=== PATIENT | born 1995 | race Caucasian/White ===

== ENCOUNTER 2021-11-19 08:15 | Outpatient (RCR) | payer OTHER, SELFPAY ==
--- NOTE | 2021-08-13 11:40 | PT.OIE ---
Current Diagnoses Unspecified dyspareunia (08/13/21) Visit Care Team Role Provider Type Shereen Dozier MD Attending Provider Non-Staff Family Provider Primary Care Provider Referring Provider Specialty: Medical Address: [address] [place] [address], [facility] Email: Physical Therapy Initial Evaluation PT-OP-A Visit Information Start: 07/13/21 08:07 Freq: Status: Active Protocol: Document 08/13/21 09:00 AMB (Rec: 08/13/21 10:12 AMB [email or web address]) Out-Patient Physical Therapy Visit Information Visit Information Visit Type Initial Evaluation Visit Start Time 09:00 Visit Stop Time 09:45 Total Visit Minutes 45 Visit Number 1 PT-OP-B Current Condition Start: 07/13/21 08:07 Freq: Status: Active Protocol: Document 08/13/21 09:01 AMB (Rec: 08/13/21 09:29 AMB [id number]) Current Condition History of Current Condition Onset Date 1 year ago Current Complaints Dyspareunia History of Current Condition Latasha was one year ago and prior to that did not engage in intercourse. She has pain since initiating sex, but denies prior history of pain with inserting tampons, painful with both deeper penetration and more superficial intercourse. Her is currently deployed, but is returning soon. She states the pain feels like something will tear, did bleed with first sexual experience , but not since then. Treatment Goals Patient/Caregiver Goals [place] without pain PT-OP-C Subjective Start: 07/13/21 08:07 Freq: Status: Active Protocol: Document 08/13/21 09:00 AMB (Rec: 08/13/21 10:12 AMB [email or web address]) Patient Questionnaires Pelvic Pain and Urgency/Frequency Patient Symptom Scale Pelvic Pain Score 6 PT-OP-I Pelvic Floor Start: 07/13/21 08:07 Freq: Status: Active Protocol: Document 08/13/21 09:00 AMB (Rec: 08/13/21 10:12 AMB [email or web address]) Pelvic Floor Assessment Urine Pelvic Floor Surgery No Pelvic Clock Pelvic Clock 3-6 Guarding,Hypertonic,Tenderness ,Tightness Pelvic Clock 6-9 Guarding,Hypertonic,Tenderness ,Tightness Pelvic Clock Other Tenderness worst at perineum/ introitus, mild tenderness and moderate tension at levator ani bilaterally, but generally much more tenderness/ tightness superficially Perineal Descent Resting Absent Bearing Absent Contraction Ability Voluntary Contraction Moderate Voluntary Relaxation Weak Manual Muscle Testing Left 3 Manual Muscle Testing Right 3 Manual Muscle Testing Anterior 3 Manual Muscle Testing Posterior 3 Muscle Endurance (Seconds) 5 Comments Pelvic Floor Comments Pt required cueing for correct pelvic floor contraction, tended to bear down rather than lift. Was able to correct with cueing. PT-OP-T Assessment and Plan Start: 07/13/21 08:07 Freq: Status: Active Protocol: Document 08/13/21 09:00 AMB (Rec: 08/13/21 10:12 AMB [email or web address]) Physical Therapy Assessment Rehab Potential Rehabilitation Potential Good Evaluation Complexity Number of Personal Factors/Comorbidities 0 Number of Body Systems Impaired 1-2 Clinical Presentation at Evaluation Stable Impairments Impairments Functional Activities,Pain Goals Two Impairment [place] Short Term Goal (STG) Latasha will tolerate insertion of a small sized dilator without an increase in pelvic floor pain. STG Duration 4 weeks Residential Goal (LTG) Latasha will tolerate intercourse of her choice with pain of 3/10 or less. LTG Duration 8 weeks One Impairment Pelvic floor Short Term Goal (STG) Latasha will tolerate insertion of biofeedback sensor so that she can learn about pelvic floor down regulation via biofeedback. STG Duration 4 weeks Farmer General Goal (LTG) Latasha will be independent with a strengthening and stretching pelvic floor home exercise program. LTG Duration 8 weeks Assessment Summary Assessment Latasha attends PT with history of painful intercourse, denies pain with inserting tampons. During her exam, she had significant tenderness and tightness at the perineal body . She did have tension throughout her pelvic floor muscles upon exam, but the superficial level was the most painful. We began instruction in pelvic floor relaxation, breathing techniques, and she was given and XS sized dilator for home use. She will benefit from physical therapy to continue education and manual releases, further instruction in pelvic floor stretching and lengthening techniques so that she can have reduced pain with intercourse. Physical Therapy Plan Frequency and Duration Frequency of Treatment 1x/Week Duration of Treatment 8 weeks Plan of Care Start Date 08/13/21 Plan of Care End Date 10/08/21 Therapeutic Interventions Therapeutic Interventions Home Exercise Program,Manual Therapy,Neuromuscular Re- education,Self-Care/Home Management,Soft Tissue Mobilization,Therapeutic Activities,Therapeutic Exercises Next Visit Focus/Plan Next Note Type Treatment Note Next Visit Plan Hip openers, review kegel, internal releases, review dilator, can consider sEMG for downtraining if sensor will be tolerated
--- NOTE | 2021-08-13 11:41 | PT.OPPOC ---
Physical, Occupational & Speech Therapy At [facility] Current Diagnoses Unspecified dyspareunia (08/13/21) Visit Care Team Role Provider Type Shereen Dozier MD Attending Provider Non-Staff Family Provider Primary Care Provider Referring Provider Specialty: Medical Address: [address] [place] [address], [id number] Email: Plan Of Care PT-OP-T Assessment and Plan Start: 07/13/21 08:07 Freq: Status: Active Protocol: Document 08/13/21 09:00 AMB (Rec: 08/13/21 10:12 AMB [email or web address]) Physical Therapy Assessment Rehab Potential Rehabilitation Potential Good Evaluation Complexity Number of Personal Factors/Comorbidities 0 Number of Body Systems Impaired 1-2 Clinical Presentation at Evaluation Stable Impairments Impairments Functional Activities,Pain Goals Two Impairment [place] Short Term Goal (STG) Latasha will tolerate insertion of a small sized dilator without an increase in pelvic floor pain. STG Duration 4 weeks Skilled Nursing Goal (LTG) Latasha will tolerate intercourse of her choice with pain of 3/10 or less. LTG Duration 8 weeks One Impairment Pelvic floor Short Term Goal (STG) Latasha will tolerate insertion of biofeedback sensor so that she can learn about pelvic floor down regulation via biofeedback. STG Duration 4 weeks Welding Machine Setter Goal (LTG) Latasha will be independent with a strengthening and stretching pelvic floor home exercise program. LTG Duration 8 weeks Assessment Summary Assessment Latasha attends PT with history of painful intercourse, denies pain with inserting tampons. During her exam, she had significant tenderness and tightness at the perineal body . She did have tension throughout her pelvic floor muscles upon exam, but the superificial level was the most painful. We began instruction in pelvic floor relaxation, breathing techniques, and she was given and XS sized dilator for home use. She will benefit from physical therapy to continue education and manual releases, further instruction in pelvic floor stretching and lengthening techniques so that she can have reduced pain with intercourse. Physical Therapy Plan Frequency and Duration Frequency of Treatment 1x/Week Duration of Treatment 8 weeks Plan of Care Start Date 08/13/21 Plan of Care End Date 10/08/21 Therapeutic Interventions Therapeutic Interventions Home Exercise Program,Manual Therapy,Neuromuscular Re- education,Self-Care/Home Management,Soft Tissue Mobilization,Therapeutic Activities,Therapeutic Exercises Next Visit Focus/Plan Next Note Type Treatment Note Next Visit Plan Hip openers, review kegel, internal releases, review dilator, can consider sEMG for downtraining if sensor will be tolerated Plan of Care Dates Plan of Care Start Date 08/13/21 Plan of Care End Date 10/08/21 Electronically Signed by: Kelsey Castro, PT 08/14/21 1144 Please Sign and Return: I have reviewed this Plan of Care and certify that the skilled therapy services above are required to meet the patient?s needs. Physician Signature Date Printed Name and Credentials Clinical Instructor Signature Printed Name and Credentials
--- NOTE | 2021-08-27 13:12 | PT.OTN ---
Current Diagnoses Unspecified dyspareunia (08/27/21) Physical Therapy Treatment Note PT-OP-A Visit Information Start: 07/13/21 08:07 Freq: Status: Active Protocol: Document 08/27/21 08:28 AMB (Rec: 08/27/21 09:04 AMB [id number]) Out-Patient Physical Therapy Visit Information Visit Information Visit Type Treatment Note Visit Start Time 08:15 Visit Stop Time 09:00 Total Visit Minutes 45 Visit Number 2 PT-OP-B Current Condition Start: 07/13/21 08:07 Freq: Status: Active Protocol: Document 08/13/21 09:01 AMB (Rec: 08/13/21 09:29 AMB [id number]) Current Condition History of Current Condition Onset Date 1 year ago Current Complaints Dyspareunia History of Current Condition Latasha was one year ago and prior to that did not engage in intercourse. She has pain since initiating sex, but denies prior history of pain with inserting tampons, painful with both deeper penetration and more superficial intercourse. Her is currently deployed, but is returning soon. She states the pain feels like something will tear, did bleed with first sexual experience , but not since then. Treatment Goals Patient/Caregiver Goals [place] without pain PT-OP-C Subjective Start: 07/13/21 08:07 Freq: Status: Active Protocol: Document 08/27/21 08:15 AMB (Rec: 08/27/21 10:59 AMB [email or web address]) OP-PT Subjective Patient Comments Patient Comments Latasha has tried the dilator a couple of times and it wasn't too bad. PT-OP-I Pelvic Floor Start: 07/13/21 08:07 Freq: Status: Active Protocol: Document 08/13/21 09:00 AMB (Rec: 08/13/21 10:12 AMB [email or web address]) Pelvic Floor Assessment Urine Pelvic Floor Surgery No Pelvic Clock Pelvic Clock 3-6 Guarding,Hypertonic,Tenderness ,Tightness Pelvic Clock 6-9 Guarding,Hypertonic,Tenderness ,Tightness Pelvic Clock Other Tenderness worst at perineum/ introitus, mild tenderness and moderate tension at levator ani bilaterally, but generally much more tenderness/ tightness superficially Perineal Descent Resting Absent Bearing Absent Contraction Ability Voluntary Contraction Moderate Voluntary Relaxation Weak Manual Muscle Testing Left 3 Manual Muscle Testing Right 3 Manual Muscle Testing Anterior 3 Manual Muscle Testing Posterior 3 Muscle Endurance (Seconds) 5 Comments Pelvic Floor Comments Pt required cueing for correct pelvic floor contraction, tended to bear down rather than lift. Was able to correct with cueing. PT-OP-Q Treatments Start: 08/27/21 08:28 Freq: Status: Active Protocol: Document 08/27/21 08:15 AMB (Rec: 08/27/21 10:59 AMB [email or web address]) Therapeutic Exercises Supine Exercises happy baby Reps/Minutes 30x2 Other Exercises 2 Other Exercise Name jonnie pose Comments with cues for pelvic relaxation with breath 1 Other Exercise Name cat cow Comments with cues for pelvic floor relaxation Manual Therapy Treatment Soft Tissue Mobilization 1 Body Location perineum Mobilization Type Myofascial Release,Sustained Pressure Intensity/Depth Moderate Body Position Hooklying PT-OP-T Assessment and Plan Start: 07/13/21 08:07 Freq: Status: Active Protocol: Document 08/27/21 08:15 AMB (Rec: 08/27/21 10:59 AMB [email or web address]) Physical Therapy Assessment Assessment Summary Assessment Latasha was able to tolerate gentle pressure on the perineum but movement increased her pain. Generally flexible hips allowed stretching but did educate in breathing, pelvic floor relaxation. Pt can consider perineal massage at home or with . Physical Therapy Plan Next Visit Focus/Plan Next Note Type Treatment Note Next Visit Plan Hip openers, review kegel, internal releases, review dilator, can consider sEMG for downtraining if sensor will be tolerated
--- NOTE | 2021-10-01 16:01 | PT.OTN ---
Current Diagnoses Unspecified dyspareunia (10/01/21) Physical Therapy Treatment Note PT-OP-A Visit Information Start: 07/13/21 08:07 Freq: Status: Active Protocol: Document 10/01/21 14:30 AMB (Rec: 10/01/21 15:41 AMB [id number]) Out-Patient Physical Therapy Visit Information Visit Information Visit Type Treatment Note Visit Start Time 14:30 Visit Stop Time 15:15 Total Visit Minutes 45 Visit Number 3 PT-OP-B Current Condition Start: 07/13/21 08:07 Freq: Status: Active Protocol: Document 08/13/21 09:01 AMB (Rec: 08/13/21 09:29 AMB [id number]) Current Condition History of Current Condition Onset Date 1 year ago Current Complaints Dyspareunia History of Current Condition Latasha was one year ago and prior to that did not engage in intercourse. She has pain since initiating sex, but denies prior history of pain with inserting tampons, painful with both deeper penetration and more superficial intercourse. Her is currently deployed, but is returning soon. She states the pain feels like something will tear, did bleed with first sexual experience , but not since then. Treatment Goals Patient/Caregiver Goals [place] without pain PT-OP-C Subjective Start: 07/13/21 08:07 Freq: Status: Active Protocol: Document 10/01/21 14:30 AMB (Rec: 10/01/21 15:41 AMB [id number]) OP-PT Subjective Patient Comments Patient Comments Latasha has been using the dilator but it is quite smaller than her , it doesn't hurt too much but intercourse still does. PT-OP-I Pelvic Floor Start: 07/13/21 08:07 Freq: Status: Active Protocol: Document 08/13/21 09:00 AMB (Rec: 08/13/21 10:12 AMB [email or web address]) Pelvic Floor Assessment Urine Pelvic Floor Surgery No Pelvic Clock Pelvic Clock 3-6 Guarding,Hypertonic,Tenderness ,Tightness Pelvic Clock 6-9 Guarding,Hypertonic,Tenderness ,Tightness Pelvic Clock Other Tenderness worst at perineum/ introitus, mild tenderness and moderate tension at levator ani bilaterally, but generally much more tenderness/ tightness superficially Perineal Descent Resting Absent Bearing Absent Contraction Ability Voluntary Contraction Moderate Voluntary Relaxation Weak Manual Muscle Testing Left 3 Manual Muscle Testing Right 3 Manual Muscle Testing Anterior 3 Manual Muscle Testing Posterior 3 Muscle Endurance (Seconds) 5 Comments Pelvic Floor Comments Pt required cueing for correct pelvic floor contraction, tended to bear down rather than lift. Was able to correct with cueing. PT-OP-Q Treatments Start: 08/27/21 08:28 Freq: Status: Active Protocol: Document 10/01/21 14:30 AMB (Rec: 10/01/21 16:01 AMB [email or web address]) Manual Therapy Treatment Soft Tissue Mobilization 2 Body Location levator/obturator Mobilization Type Sustained Pressure,Trigger Point Release Body Position Hooklying 1 Body Location perineum Mobilization Type Myofascial Release,Sustained Pressure Intensity/Depth Moderate Body Position Hooklying Neuro Re-Education Treatment Other Activities 1 Details sEMG Comments downtraining PT-OP-T Assessment and Plan Start: 07/13/21 08:07 Freq: Status: Active Protocol: Document 10/01/21 14:30 AMB (Rec: 10/01/21 16:01 AMB [email or web address]) Physical Therapy Assessment Goals Two Impairment [place] Short Term Goal (STG) Latasha will tolerate insertion of a small sized dilator without an increase in pelvic floor pain. STG Duration 4 weeks Nursing Home Goal (LTG) Latasha will tolerate intercourse of her choice with pain of 3/10 or less. LTG Duration 8 weeks One Impairment Pelvic floor Short Term Goal (STG) Latasha will tolerate insertion of biofeedback sensor so that she can learn about pelvic floor down regulation via biofeedback. STG Duration 4 weeks Supervisor [employer] Goal (LTG) Latasha will be independent with a strengthening and stretching pelvic floor home exercise program. LTG Duration 8 weeks Assessment Summary Assessment Latasha tolerated sensor placement well. Averaged between 2-3 baseline, but did do better with relaxation after doing a kegel. continues to have a burning feeling with manual therapy at introitus. This was her 3rd appointment, scheduling has been difficult for a number of reasons, so progress has been limited due to that. Did vend larger dilators. Physical Therapy Plan Frequency and Duration Frequency of Treatment 1x/Week Duration of Treatment 8 weeks Plan of Care Start Date 10/01/21 Plan of Care End Date 11/26/21 Therapeutic Interventions Therapeutic Interventions Home Exercise Program,Manual Therapy,Neuromuscular Re- education,Self-Care/Home Management,Soft Tissue Mobilization,Therapeutic Activities,Therapeutic Exercises Modalities Biofeedback,Electric Stimulation Next Visit Focus/Plan Next Note Type Treatment Note Next Visit Plan Hip openers, review kegel, internal releases, review dilator,
--- NOTE | 2021-10-01 16:01 | PT.OPPOC ---
Physical, Occupational & Speech Therapy At [facility] Current Diagnoses Unspecified dyspareunia (10/01/21) Visit Care Team Role Provider Type Shereen Dozier MD Attending Provider Non-Staff Family Provider Primary Care Provider Referring Provider Specialty: Medical Address: [address] [place] [address], [id number] Email: Plan Of Care PT-OP-T Assessment and Plan Start: 07/13/21 08:07 Freq: Status: Active Protocol: Document 10/01/21 14:30 AMB (Rec: 10/01/21 16:01 AMB [email or web address]) Physical Therapy Assessment Goals Two Impairment [place] Short Term Goal (STG) Latasha will tolerate insertion of a small sized dilator without an increase in pelvic floor pain. STG Duration 4 weeks Cloud Infrastructure Architect Goal (LTG) Latasha will tolerate intercourse of her choice with pain of 3/10 or less. LTG Duration 8 weeks One Impairment Pelvic floor Short Term Goal (STG) Latasha will tolerate insertion of biofeedback sensor so that she can learn about pelvic floor down regulation via biofeedback. STG Duration 4 weeks Senior Care Goal (LTG) Latasha will be independent with a strengthening and stretching pelvic floor home exercise program. LTG Duration 8 weeks Assessment Summary Assessment Latasha tolerated sensor placement well. Averaged between 2-3 baseline, but did do better with relaxation after doing a kegel. continues to have a burning feeling with manual therapy at introitus. This was her 3rd appointment, scheduling has been difficult for a number of reasons, so progress has been limited due to that. Did vend larger dilators. Physical Therapy Plan Frequency and Duration Frequency of Treatment 1x/Week Duration of Treatment 8 weeks Plan of Care Start Date 10/01/21 Plan of Care End Date 11/26/21 Therapeutic Interventions Therapeutic Interventions Home Exercise Program,Manual Therapy,Neuromuscular Re- education,Self-Care/Home Management,Soft Tissue Mobilization,Therapeutic Activities,Therapeutic Exercises Modalities Biofeedback,Electric Stimulation Next Visit Focus/Plan Next Note Type Treatment Note Next Visit Plan Hip openers, review kegel, internal releases, review dilator, Plan of Care Dates Plan of Care Start Date 10/01/21 Plan of Care End Date 11/26/21 Electronically Signed by: Kelsey Castro, PT 10/01/21 1601 Please Sign and Return: I have reviewed this Plan of Care and certify that the skilled therapy services above are required to meet the patient?s needs. Physician Signature Date Printed Name and Credentials Clinical Instructor Signature Printed Name and Credentials
--- NOTE | 2021-10-15 11:06 | PT-OP ANOTE ---
No show: Called and left voicemail reminding pt of next appointment and no show policy.
--- NOTE | 2021-10-22 13:39 | PT.OTN ---
Current Diagnoses Unspecified dyspareunia (10/22/21) Physical Therapy Treatment Note PT-OP-A Visit Information Start: 07/13/21 08:07 Freq: Status: Active Protocol: Document 10/22/21 10:33 AMB (Rec: 10/22/21 12:03 AMB [id number]) Out-Patient Physical Therapy Visit Information Visit Information Visit Type Treatment Note Visit Start Time 10:30 Visit Stop Time 11:15 Total Visit Minutes 45 Visit Number 4 PT-OP-B Current Condition Start: 07/13/21 08:07 Freq: Status: Active Protocol: Document 08/13/21 09:01 AMB (Rec: 08/13/21 09:29 AMB [id number]) Current Condition History of Current Condition Onset Date 1 year ago Current Complaints Dyspareunia History of Current Condition Latasha was one year ago and prior to that did not engage in intercourse. She has pain since initiating sex, but denies prior history of pain with inserting tampons, painful with both deeper penetration and more superficial intercourse. Her is currently deployed, but is returning soon. She states the pain feels like something will tear, did bleed with first sexual experience , but not since then. Treatment Goals Patient/Caregiver Goals [place] without pain PT-OP-C Subjective Start: 07/13/21 08:07 Freq: Status: Active Protocol: Document 10/22/21 10:30 AMB (Rec: 10/22/21 13:39 AMB [email or web address]) OP-PT Subjective Patient Comments Patient Comments Latasha has had a hard time focusing on her PT exercises, she did increase dilator sizes by one, but that is it so far . Continues to describe pain as burning. PT-OP-I Pelvic Floor Start: 07/13/21 08:07 Freq: Status: Active Protocol: Document 08/13/21 09:00 AMB (Rec: 08/13/21 10:12 AMB [email or web address]) Pelvic Floor Assessment Urine Pelvic Floor Surgery No Pelvic Clock Pelvic Clock 3-6 Guarding,Hypertonic,Tenderness ,Tightness Pelvic Clock 6-9 Guarding,Hypertonic,Tenderness ,Tightness Pelvic Clock Other Tenderness worst at perineum/ introitus, mild tenderness and moderate tension at levator ani bilaterally, but generally much more tenderness/ tightness superficially Perineal Descent Resting Absent Bearing Absent Contraction Ability Voluntary Contraction Moderate Voluntary Relaxation Weak Manual Muscle Testing Left 3 Manual Muscle Testing Right 3 Manual Muscle Testing Anterior 3 Manual Muscle Testing Posterior 3 Muscle Endurance (Seconds) 5 Comments Pelvic Floor Comments Pt required cueing for correct pelvic floor contraction, tended to bear down rather than lift. Was able to correct with cueing. PT-OP-Q Treatments Start: 08/27/21 08:28 Freq: Status: Active Protocol: Document 10/22/21 10:30 AMB (Rec: 10/22/21 13:39 AMB [email or web address]) Manual Therapy Treatment Soft Tissue Mobilization 1 Body Location perineum Mobilization Type Myofascial Release,Sustained Pressure Intensity/Depth Moderate Body Position Hooklying PT-OP-T Assessment and Plan Start: 07/13/21 08:07 Freq: Status: Active Protocol: Document 10/22/21 10:30 AMB (Rec: 10/22/21 13:39 AMB [email or web address]) Physical Therapy Assessment Goals Two Impairment [place] Short Term Goal (STG) Latasha will tolerate insertion of a small sized dilator without an increase in pelvic floor pain. STG Duration 4 weeks [place] Goal (LTG) Latasha will tolerate intercourse of her choice with pain of 3/10 or less. LTG Duration 8 weeks One Impairment Pelvic floor Short Term Goal (STG) Latasha will tolerate insertion of biofeedback sensor so that she can learn about pelvic floor down regulation via biofeedback. STG Duration 4 weeks [place] [employer] Goal (LTG) Latasha will be independent with a strengthening and stretching pelvic floor home exercise program. LTG Duration 8 weeks Assessment Summary Assessment Latasha is having a hard time with consistency with her prescribed PT plan but was able to tolerate more pressure with manual therapy today. Physical Therapy Plan Next Visit Focus/Plan Next Note Type Treatment Note Next Visit Plan Continue to progress manual therapy and dilator usage.
--- NOTE | 2021-10-29 16:00 | PT.OTN ---
Current Diagnoses Unspecified dyspareunia (10/29/21) Physical Therapy Treatment Note PT-OP-A Visit Information Start: 07/13/21 08:07 Freq: Status: Active Protocol: Document 10/29/21 09:45 AMB (Rec: 10/29/21 13:01 AMB [email or web address]) Out-Patient Physical Therapy Visit Information Visit Information Visit Type Treatment Note Visit Start Time 09:45 Visit Stop Time 10:30 Total Visit Minutes 45 Visit Number 5 PT-OP-B Current Condition Start: 07/13/21 08:07 Freq: Status: Active Protocol: Document 08/13/21 09:01 AMB (Rec: 08/13/21 09:29 AMB [id number]) Current Condition History of Current Condition Onset Date 1 year ago Current Complaints Dyspareunia History of Current Condition Latasha was one year ago and prior to that did not engage in intercourse. She has pain since initiating sex, but denies prior history of pain with inserting tampons, painful with both deeper penetration and more superficial intercourse. Her is currently deployed, but is returning soon. She states the pain feels like something will tear, did bleed with first sexual experience , but not since then. Treatment Goals Patient/Caregiver Goals [place] without pain PT-OP-C Subjective Start: 07/13/21 08:07 Freq: Status: Active Protocol: Document 10/29/21 09:45 AMB (Rec: 10/29/21 13:01 AMB [email or web address]) OP-PT Subjective Patient Comments Patient Comments Latasha is feeling a bit better this week, she has been able to insert the medium dilator with a bit of difficulty, but it did go in. PT-OP-I Pelvic Floor Start: 07/13/21 08:07 Freq: Status: Active Protocol: Document 08/13/21 09:00 AMB (Rec: 08/13/21 10:12 AMB [email or web address]) Pelvic Floor Assessment Urine Pelvic Floor Surgery No Pelvic Clock Pelvic Clock 3-6 Guarding,Hypertonic,Tenderness ,Tightness Pelvic Clock 6-9 Guarding,Hypertonic,Tenderness ,Tightness Pelvic Clock Other Tenderness worst at perineum/ introitus, mild tenderness and moderate tension at levator ani bilaterally, but generally much more tenderness/ tightness superficially Perineal Descent Resting Absent Bearing Absent Contraction Ability Voluntary Contraction Moderate Voluntary Relaxation Weak Manual Muscle Testing Left 3 Manual Muscle Testing Right 3 Manual Muscle Testing Anterior 3 Manual Muscle Testing Posterior 3 Muscle Endurance (Seconds) 5 Comments Pelvic Floor Comments Pt required cueing for correct pelvic floor contraction, tended to bear down rather than lift. Was able to correct with cueing. PT-OP-Q Treatments Start: 08/27/21 08:28 Freq: Status: Active Protocol: Document 10/29/21 09:45 AMB (Rec: 10/31/21 10:49 AMB [id number]) Manual Therapy Treatment Soft Tissue Mobilization 2 Body Location levator/obturator Mobilization Type Sustained Pressure,Trigger Point Release Body Position Hooklying 1 Body Location perineum Mobilization Type Myofascial Release,Sustained Pressure Intensity/Depth Moderate Body Position Hooklying PT-OP-T Assessment and Plan Start: 07/13/21 08:07 Freq: Status: Active Protocol: Document 10/29/21 09:45 AMB (Rec: 10/31/21 10:49 AMB [id number]) Physical Therapy Assessment Assessment Summary Assessment Latasha tolerated signficantly more pressure today with less pain. Encourage her that continued dilator usage should help keep this progress. Physical Therapy Plan Next Visit Focus/Plan Next Note Type Treatment Note Next Visit Plan Continue to progress manual therapy and dilator usage.
--- NOTE | 2021-11-19 10:12 | PT.OTN ---
Current Diagnoses Unspecified dyspareunia (11/19/21) Physical Therapy Treatment Note PT-OP-A Visit Information Start: 07/13/21 08:07 Freq: Status: Active Protocol: Document 11/19/21 08:35 AMB (Rec: 11/19/21 10:12 AMB [id number]) Out-Patient Physical Therapy Visit Information Visit Information Visit Type Discharge Summary Visit Start Time 08:30 Visit Stop Time 09:15 Total Visit Minutes 45 Visit Number 6 PT-OP-B Current Condition Start: 07/13/21 08:07 Freq: Status: Active Protocol: Document 08/13/21 09:01 AMB (Rec: 08/13/21 09:29 AMB [id number]) Current Condition History of Current Condition Onset Date 1 year ago Current Complaints Dyspareunia History of Current Condition Latasha was one year ago and prior to that did not engage in intercourse. She has pain since initiating sex, but denies prior history of pain with inserting tampons, painful with both deeper penetration and more superficial intercourse. Her is currently deployed, but is returning soon. She states the pain feels like something will tear, did bleed with first sexual experience , but not since then. Treatment Goals Patient/Caregiver Goals [place] without pain PT-OP-C Subjective Start: 07/13/21 08:07 Freq: Status: Active Protocol: Document 11/19/21 08:35 AMB (Rec: 11/19/21 10:12 AMB [id number]) OP-PT Subjective Patient Comments Patient Comments Latasha had a difficult time finding time to work on the dilator at home over the holidays. She has tried intercourse, and can insert but the movement of intercourse still hurts. PT-OP-I Pelvic Floor Start: 07/13/21 08:07 Freq: Status: Active Protocol: Document 08/13/21 09:00 AMB (Rec: 08/13/21 10:12 AMB [email or web address]) Pelvic Floor Assessment Urine Pelvic Floor Surgery No Pelvic Clock Pelvic Clock 3-6 Guarding,Hypertonic,Tenderness ,Tightness Pelvic Clock 6-9 Guarding,Hypertonic,Tenderness ,Tightness Pelvic Clock Other Tenderness worst at perineum/ introitus, mild tenderness and moderate tension at levator ani bilaterally, but generally much more tenderness/ tightness superficially Perineal Descent Resting Absent Bearing Absent Contraction Ability Voluntary Contraction Moderate Voluntary Relaxation Weak Manual Muscle Testing Left 3 Manual Muscle Testing Right 3 Manual Muscle Testing Anterior 3 Manual Muscle Testing Posterior 3 Muscle Endurance (Seconds) 5 Comments Pelvic Floor Comments Pt required cueing for correct pelvic floor contraction, tended to bear down rather than lift. Was able to correct with cueing. PT-OP-Q Treatments Start: 08/27/21 08:28 Freq: Status: Active Protocol: Document 11/19/21 08:35 AMB (Rec: 11/19/21 10:12 AMB [id number]) Manual Therapy Treatment Soft Tissue Mobilization 2 Body Location levator/obturator Mobilization Type Sustained Pressure,Trigger Point Release Body Position Hooklying 1 Body Location perineum Mobilization Type Myofascial Release,Sustained Pressure Intensity/Depth Moderate Body Position Hooklying PT-OP-T Assessment and Plan Start: 07/13/21 08:07 Freq: Status: Active Protocol: Document 11/19/21 08:35 AMB (Rec: 11/19/21 10:12 AMB [id number]) Physical Therapy Assessment Goals Two Impairment [place] Short Term Goal (STG) Latasha will tolerate insertion of a small sized dilator without an increase in pelvic floor pain. STG Duration MET [facility] Goal (LTG) Latasha will tolerate intercourse of her choice with pain of 3/10 or less. LTG Duration NOT MET One Impairment Pelvic floor Short Term Goal (STG) Latasha will tolerate insertion of biofeedback sensor so that she can learn about pelvic floor down regulation via biofeedback. STG Duration NOT MET [facility] Goal (LTG) Latasha will be independent with a strengthening and stretching pelvic floor home exercise program. LTG Duration PROGRESS MADE Assessment Summary Assessment Latasha is tolerating physical therapy better but we need a new auth. She is having difficulty with consistency with her HEP. She has improved with less pain with pelvic floor release, but intercourse continues to be painful. Vended larger dilator today and instructed in wand usage if she wants to buy one, then she can follow up in a couple months if she is not improving. Physical Therapy Plan Discharge Physical Therapy Discharge Reasons [place] in Progress Discharge Comments Pt admits she needs to be more consistent with her dilator usage/wand, she will work on that for the next 3 months and then follow up if she needs further PT.
== END 2021-12-15 08:38 ==
LOC: PHYS 08:15
PROVIDERS: Family Provider Student in an Organized Health Care Education/Training Program; PCP Student in an Organized Health Care Education/Training Program; Referring Provider Student in an Organized Health Care Education/Training Program; Visit Provider Student in an Organized Health Care Education/Training Program
DX: N94.10 Unspecified dyspareunia (principal)
CPT/HCPCS: 97110; 97112; 97140; 97161

== ENCOUNTER → 2023-07-23 15:46 | Outpatient (CLI) | payer OTHER, SELFPAY | PROVIDERS: Family Provider Student in an Organized Health Care Education/Training Program; PCP Student in an Organized Health Care Education/Training Program; Visit Provider Registered Nurse | DX: N39.0 Urinary tract infection, site not specified (principal) | CPT/HCPCS: 87086 ==